=== PATIENT | male | born 1950 | race Caucasian/White ===

== ENCOUNTER → 2024-01-04 11:44 | Outpatient (CLI) | payer OTHER, SELFPAY ==
--- NOTE | 2024-01-04 11:48 | DI.CT.S_ITS ---
PROCEDURE: CT SOFT TISSUE NECK W CON INDICATIONS: NECK MASS TECHNIQUE: After the administration of intravenous contrast, 3.0 mm axial sections acquired from the sella to the aortic arch. Additional oblique axial 3.0 mm sections acquired through the pharynx. 3 mm thick coronal and sagittal reformats were generated. For radiation dose reduction, the following was used: automated exposure control. COMPARISON: None available at the time of this dictation. FINDINGS: Image quality: There is artifact associated with the metallic hardware. Artifact from the metallic hardware is reduced by metal reconstruction algorithm. Lymph nodes: No enlarged lymph nodes seen throughout the neck. Vessels: Visualized vasculature appears patent. Neck spaces: The oropharynx, nasopharynx, and pharynx demonstrate no mucosal lesions. The vocal cords, false vocal cords, pyriform sinuses, epiglottis, vallecula, and tongue base all appear normal. Extramucosal spaces appear unremarkable. Glands: At the area of clinical concern, there is a thyroid mass seen, with internal calcification and irregularity, measuring 8 by 7 cm in greatest axial dimension, with a craniocaudal extent of 9 cm. There is associated deviation of the trachea to the right. The parotid and submandibular glands appear normal. Miscellaneous: Visualized brain and orbits appear normal. Lung apices appear clear. Superficial soft tissues appear normal. Bones: No suspicious bony lesions. Visualized sinuses and mastoids appear unremarkable. Mild cervical spine degenerative changes are seen. IMPRESSION: 9 cm left thyroid mass seen at the area of clinical concern, with associated deviation of the trachea to the right. (By history, this was previously biopsied, with negative results.) No enlarged lymph nodes are seen. Dictated by: Maynor Srivastava M.D. on 01/04/2024 at 16:25 Approved by: Maynor Srivastava M.D. on 01/04/2024 at 16:27
[2024-01-04 12:17] LABS: Cholesterol 179 mg/dL (140-199); Estimated Glomerular Filt Rate > 60 mL/min (>60); HDL Cholesterol 32 mg/dL (40-60); LDL Cholesterol Calculated 105 mg/dL (<100); Triglycerides 210 mg/dL (35-150)
== END ==
PROVIDERS: Radiology Diagnostic Radiology; PCP Internal Medicine; Referring Provider Internal Medicine; Visit Provider Internal Medicine
DX: R22.1 Localized swelling, mass and lump, neck (principal); I48.0 Paroxysmal atrial fibrillation; I35.0 Nonrheumatic aortic (valve) stenosis; E07.9 Disorder of thyroid, unspecified; E78.2 Mixed hyperlipidemia
CPT/HCPCS: 36415; 70491; 80061; 82565; Q9967